=== PATIENT | female | born 1935 | race Two or more races ===

== ENCOUNTER 2022-04-02 10:40 | Inpatient (IN) | payer OTHER ==
[2022-04-01 09:52] LABS: Basophils # (auto) 0.1 10 ^3/uL (0-0.2); Basophils % (auto) 0.7 % (0.0-2.0); Eosinophils # (auto) 0.1 10 ^3/uL (0-0.8); Eosinophils % (auto) 1.7 % (0.0-7.0); Hematocrit 38.6 % (36.0-46.0); Hemoglobin 13.2 g/dL (12.2-16.2); Lymphocytes # (auto) 2.2 10 ^3/uL (0.4-5.4); Lymphocytes % (auto) 27.7 % (10.0-50.0); Mean Corpuscular Hemoglobin 32.9 pg (28.0-32.0); Mean Corpuscular Hgb Conc. 34.2 g/dL (32.0-36.0); Mean Corpuscular Volume 96.2 fL (80.0-100.0); Monocytes # (auto) 0.7 10 ^3/uL (0-1.3); Monocytes % (auto) 8.5 % (0.0-12.0); Neutrophils % (auto) 61.4 % (37.0-80.0); Red Blood Cells 4.02 10^6/uL (4.0-5.20); Red Cell Distribution Width 13.6 % (11.8-14.3); White Blood Cell 8.1 10^3/uL (4.4-10.8)
[2022-04-01 10:10] LABS: INR 1.01 (0.9-1.15); Partial Thromboplastin Time 25.6 sec (24.6-33.4)
[2022-04-01 10:16] LABS: Urine Bacteria NONE SEEN /hpf (None Seen); Urine Blood Negative /uL (Negative); Urine Specific Gravity 1.011 (1.001-1.035); Urine WBC 35 /hpf (0 - 5)
[2022-04-01 10:24] LABS: Albumin 3.9 g/dL (3.4-5.0); Calcium 9.4 mg/dL (8.5-10.1); Potassium 3.4 mmol/L (3.5-5.1)
[2022-04-01 10:28] LABS: BUN/Creatinine Ratio 21.3; Bilirubin, Total 0.7 mg/dL (0.2-1.0); Total Protein 7.6 g/dL (6.4-8.2)
[~2022-04-02] VITALS: Ht 162.6 cm; Wt 78.9 kg
[~2022-04-02 10:40] MED LIST: AMIO200T33 PO; AMLO-489 PO; B-COTAB59 OR; CALC-354 OR; CHOL100055 PO; FER325T PO; GLUC500T48 PO; HYDR25TA4 PO; LANS30CA57 PO; LEVO75TA6 PO; LOSA-39 PO; POTA10TA51 PO; RIVA10TA PO; ZOLP5TAB5 PO
[2022-04-02] MEDS ORDERED: ceFAZolin 1GM/50ML 0 ML IV ONE (11:41)
[2022-04-02] MEDS ORDERED: cefTRIAXone 1GM/50ML D5W 50 ML IV ONE (14:00)
[2022-04-02] MEDS ORDERED: NITROGLYCERIN 0.4 MG SL TAB SL PRN (14:00)
[2022-04-02] MEDS ORDERED: ONDANSETRON HCL 4 MG/2 ML VIAL IV PRN (14:00)
[2022-04-02] MEDS ORDERED: MORPHINE SULFATE INJ 2 MG/ml SYRG IV PRN ×2 (14:00)
[2022-04-02] MEDS: AMIODARONE HCL 200 MG TAB PO SCH ×2 (15:50→16:53)
[2022-04-02] MEDS: SODIUM CHLORIDE 0.9% 1,000 ML IV SCH (15:50)
[2022-04-02 16:15] VITALS: BP 105/75
[2022-04-02 17:00] VITALS: BP 111/56
[2022-04-02] MEDS: metroNIDAZOLE 500MG/100ML 100 ML IV SCH ×2 (17:55→22:00)
[2022-04-02 21:47] VITALS: BP 137/50
[2022-04-03] MEDS: LEVOTHYROXINE SODIUM 25 MCG TAB PO SCH (04:27)
[2022-04-03] MEDS: metroNIDAZOLE 500MG/100ML 100 ML IV SCH ×3 (05:26→23:00)
[2022-04-03 05:42] VITALS: BP 121/60
[2022-04-03 05:44] LABS: BUN/Creatinine Ratio 18.6; Calcium 8.8 mg/dL (8.5-10.1); Potassium 3.7 mmol/L (3.5-5.1)
[2022-04-03] MEDS: SODIUM CHLORIDE 0.9% 1,000 ML IV SCH ×2 (07:07→19:38)
[2022-04-03 08:00] VITALS: BP 120/76
[2022-04-03] MEDS: PANTOPRAZOLE 40 MG/10 ML VIAL INJ IV SCH (08:55)
[2022-04-03] MEDS: LOSARTAN POTASSIUM 25 MG TAB PO SCH (08:56)
[2022-04-03] MEDS: AMIODARONE HCL 200 MG TAB PO SCH (08:56)
[2022-04-03] MEDS ORDERED: cefTRIAXone 1GM/50ML D5W 50 ML IV SCH (09:00)
[2022-04-03] MEDS ORDERED: ROCURONIUM 10MG/ML 10ML VIAL IV ONE (11:15)
[2022-04-03] MEDS ORDERED: fentaNYL CITRATE 100 MCG/2 ML VL ONE (11:15)
[2022-04-03] MEDS ORDERED: MIDAZOLAM HCL 2MG/2ML 2ml VIAL (1mg/ml) ONE (11:15)
[2022-04-03] MEDS ORDERED: SUCCINYLCHOLINE CHLORIDE 20 MG/ML 10ML VIAL IV ONE (11:29)
[2022-04-03] MEDS ORDERED: ceFAZolin 1GM/50ML 100 ML IV ONE (11:34)
[2022-04-03] MEDS ORDERED: ePHEDrine SULFATE 50 MG/ML AMP ONE (12:33)
[2022-04-03] MEDS ORDERED: POVIDONE IODINE 10 % TOPICAL OINT 30GM TOP ONE (12:47)
[2022-04-03] MEDS ORDERED: LIDOCAINE 1% (LOCAL ANESTH.) PF 5ml SDV ONE (12:52)
[2022-04-03] MEDS ORDERED: ONDANSETRON HCL 4 MG/2 ML VIAL ONE (12:52)
[2022-04-03] MEDS ORDERED: PROPOFOL 10 MG/ML 20 ML IV ONE (12:53)
[2022-04-03] MEDS ORDERED: GLYCOPYRROLATE 0.2 MG/ML 1ML VIAL ONE (13:09)
[2022-04-03] MEDS ORDERED: ACETAMINOPHEN/CODEINE#3 (300/30mg) TAB PO PRN (13:30)
[2022-04-03] MEDS ORDERED: HYDROmorphone HCL 2 MG/ML VL/or syr ONE (13:36)
[2022-04-03] MEDS: HYDROmorphone HCL 2 MG/ML VL/or syr IV PRN ×2 (13:41→13:58)
[2022-04-03] MEDS ORDERED: HYDROmorphone HCL 2 MG/ML VL/or syr IV PRN ×2 (13:45)
[2022-04-03] MEDS ORDERED: ONDANSETRON HCL 4 MG/2 ML VIAL IV PRN (13:45)
[2022-04-03 16:00] VITALS: BP 127/68
[2022-04-03] MEDS: HYDROcodone-ACET 5/325MG TAB PO PRN (16:05)
[2022-04-03] MEDS: D5W/SOD CHL 0.45%/KCL 20MEQ 1,000 ML IV SCH ×2 (16:06→23:30)
[2022-04-03] MEDS: ceFAZolin 1GM/50ML 50 ML IV SCH ×2 (16:07→21:44)
[2022-04-03] MEDS ORDERED: NEOSTIGMINE 1 MG/ML INJ (10mg/10ML VIAL) IV ONE (16:45)
[2022-04-03 17:01] VITALS: BP 116/60
[2022-04-03 22:00] VITALS: BP 112/60
[2022-04-04 05:00] VITALS: BP 112/57
[2022-04-04] MEDS: ceFAZolin 1GM/50ML 50 ML IV SCH ×3 (05:43→22:20)
[2022-04-04] MEDS: ACETAMINOPHEN 500 MG TAB PO PRN ×2 (05:44→16:02)
[2022-04-04 06:04] LABS: Basophils # (auto) 0 10 ^3/uL (0-0.2); Basophils % (auto) 0.3 % (0.0-2.0); Eosinophils # (auto) 0 10 ^3/uL (0-0.8); Eosinophils % (auto) 0.4 % (0.0-7.0); Hematocrit 36.5 % (36.0-46.0); Hemoglobin 12.4 g/dL (12.2-16.2); Lymphocytes # (auto) 1.5 10 ^3/uL (0.4-5.4); Lymphocytes % (auto) 14.6 % (10.0-50.0); Mean Corpuscular Hemoglobin 32.6 pg (28.0-32.0); Mean Corpuscular Volume 95.9 fL (80.0-100.0); Monocytes # (auto) 1.1 10 ^3/uL (0-1.3); Monocytes % (auto) 10.8 % (0.0-12.0); Neutrophils # (auto) 7.8 10 ^3/uL (1.6-8.6); Neutrophils % (auto) 73.9 % (37.0-80.0); Red Cell Distribution Width 13.5 % (11.8-14.3); White Blood Cell 10.5 10^3/uL (4.4-10.8)
[2022-04-04] MEDS: metroNIDAZOLE 500MG/100ML 100 ML IV SCH ×3 (06:28→23:38)
[2022-04-04] MEDS: LEVOTHYROXINE SODIUM 25 MCG TAB PO SCH (07:00)
[2022-04-04 08:00] VITALS: BP 108/63
[2022-04-04 09:01] LABS: Calcium 8.4 mg/dL (8.5-10.1); Potassium 3.9 mmol/L (3.5-5.1)
[2022-04-04 09:04] LABS: BUN/Creatinine Ratio 14.3; Bilirubin, Total 0.5 mg/dL (0.2-1.0)
[2022-04-04] MEDS: AMIODARONE HCL 200 MG TAB PO SCH (09:44)
[2022-04-04] MEDS: PANTOPRAZOLE 40 MG/10 ML VIAL INJ IV SCH (09:45)
[2022-04-04] MEDS: LOSARTAN POTASSIUM 25 MG TAB PO SCH (09:45)
[2022-04-04] MEDS: D5W/SOD CHL 0.45%/KCL 20MEQ 1,000 ML IV SCH ×2 (09:51→19:30)
[2022-04-04 12:00] VITALS: BP 109/66
[2022-04-04 16:00] VITALS: BP 132/72
[2022-04-04] MEDS: SODIUM CHLORIDE 0.9% 1,000 ML IV SCH (16:22)
[2022-04-04] MEDS: HYDROcodone-ACET 5/325MG TAB PO PRN (21:31)
[2022-04-04 21:32] VITALS: BP 128/79
[2022-04-05 04:45] VITALS: BP 137/82
[2022-04-05] MEDS ORDERED: SODIUM CHLORIDE 0.9% 500 ML IV ONE (04:45)
[2022-04-05 05:21] LABS: Potassium 3.5 mmol/L (3.5-5.1)
[2022-04-05 05:23] LABS: Magnesium 1.8 mg/dL (1.6-2.6)
[2022-04-05] MEDS: D5W/SOD CHL 0.45%/KCL 20MEQ 1,000 ML IV SCH ×2 (05:52→16:51)
[2022-04-05] MEDS: ceFAZolin 1GM/50ML 50 ML IV SCH ×3 (06:06→21:50)
[2022-04-05] MEDS ORDERED: METOPROLOL TARTRATE 1MG/1ML-5ML VIAL IV PRN (06:15)
[2022-04-05] MEDS: metroNIDAZOLE 500MG/100ML 100 ML IV SCH ×3 (06:53→22:48)
[2022-04-05] MEDS: LEVOTHYROXINE SODIUM 25 MCG TAB PO SCH (06:53)
[2022-04-05 09:00] VITALS: BP 128/80
[2022-04-05] MEDS: AMIODARONE HCL 200 MG TAB PO SCH (09:13)
[2022-04-05] MEDS: METOPROLOL TARTRATE 25 MG TAB PO SCH ×2 (09:14→22:48)
[2022-04-05] MEDS: PANTOPRAZOLE 40 MG/10 ML VIAL INJ IV SCH (09:15)
[2022-04-05 13:00] VITALS: BP 120/69
[2022-04-05] MEDS ORDERED: MET25T PO (14:39)
[2022-04-05] MEDS ORDERED: HYDR-4902 PO (14:40)
[2022-04-05 17:00] VITALS: BP 127/65
[2022-04-05 17:59] VITALS: BP 120/69
[2022-04-05 22:00] VITALS: BP 130/59
[2022-04-06] MEDS: D5W/SOD CHL 0.45%/KCL 20MEQ 1,000 ML IV SCH ×2 (01:21→11:30)
[2022-04-06 05:00] VITALS: BP 133/67
[2022-04-06] MEDS: ceFAZolin 1GM/50ML 50 ML IV SCH ×2 (05:12→14:48)
[2022-04-06] MEDS: LEVOTHYROXINE SODIUM 25 MCG TAB PO SCH (06:13)
[2022-04-06] MEDS: metroNIDAZOLE 500MG/100ML 100 ML IV SCH ×2 (06:13→15:28)
[2022-04-06] MEDS: AMIODARONE HCL 200 MG TAB PO SCH (08:59)
[2022-04-06] MEDS: METOPROLOL TARTRATE 25 MG TAB PO SCH (09:00)
[2022-04-06] MEDS: PANTOPRAZOLE 40 MG/10 ML VIAL INJ IV SCH (09:02)
[2022-04-06 13:00] VITALS: BP 136/65
[2022-04-06] MEDS ORDERED: RIVAROXABAN 15 MG TAB PO SCH (18:00)
== END 2022-04-06 16:25 | disposition home health service (06) | DRG 415 ==
LOC: SUR 10:40 → TELE 14:00 → EAST 15:46 → TELE-EAST 23:01
PROVIDERS: ADMIT Internal Medicine; ATTEND Internal Medicine
PROC: 0FJ44ZZ Inspection of Gallbladder, Percutaneous Endoscopic Approach (ICD-10-PCS; 2022-04-03)
PROC: 0FT40ZZ Resection of Gallbladder, Open Approach (ICD-10-PCS; principal; 2022-04-03 11:36)
DX: K80.10 Calculus of gallbladder with chronic cholecystitis without obstruction (principal); D68.69 Other thrombophilia; N17.9 Acute kidney failure, unspecified; N39.0 Urinary tract infection, site not specified; E03.9 Hypothyroidism, unspecified; K21.9 Gastro-esophageal reflux disease without esophagitis; I12.9 Hypertensive chronic kidney disease with stage 1 through stage 4 chronic kidney disease, or unspecified chronic kidney disease; K66.0 Peritoneal adhesions (postprocedural) (postinfection); Z20.822 Contact with and (suspected) exposure to COVID-19; I48.0 Paroxysmal atrial fibrillation; N18.9 Chronic kidney disease, unspecified; Z53.31 Laparoscopic surgical procedure converted to open procedure; Z79.01 Long term (current) use of anticoagulants; Z85.038 Personal history of other malignant neoplasm of large intestine
CPT/HCPCS: 36415; 71045; 80048; 80053; 81001; 82247; 83735; 84132; 84443; 85025; 85610; 85730; 86850; 86900; 86901; 93005; 93306; C9113; G0378; J0330; J0690; J0696; J2250; J2405; J2704; J3490

== ENCOUNTER 2022-07-20 07:11 | Inpatient (IN) | payer BC, MEDICAID ==
[~2022-07-20] VITALS: Ht 160 cm; Wt 72.0 kg
[~2022-07-20 07:11] MED LIST changes: -B-COTAB59 OR; +HYDR-4902 PO; -LOSA-39 PO; +MET25T PO
[2022-07-20 07:42] LABS: Basophils # (auto) 0.1 10 ^3/uL (0-0.2); Basophils % (auto) 0.8 % (0.0-2.0); Eosinophils # (auto) 0.1 10 ^3/uL (0-0.8); Eosinophils % (auto) 1.7 % (0.0-7.0); Hemoglobin 14.9 g/dL (12.2-16.2); Lymphocytes # (auto) 2.9 10 ^3/uL (0.4-5.4); Lymphocytes % (auto) 34.9 % (10.0-50.0); Mean Corpuscular Hemoglobin 32.4 pg (28.0-32.0); Mean Corpuscular Hgb Conc. 33.8 g/dL (32.0-36.0); Mean Corpuscular Volume 95.9 fL (80.0-100.0); Monocytes # (auto) 0.7 10 ^3/uL (0-1.3); Monocytes % (auto) 8.3 % (0.0-12.0); Neutrophils # (auto) 4.6 10 ^3/uL (1.6-8.6); Neutrophils % (auto) 54.3 % (37.0-80.0); Nucleated Red Blood Cells % 0.1 %; Red Blood Cells 4.59 10^6/uL (4.0-5.20); Red Cell Distribution Width 13.9 % (11.8-14.3); White Blood Cell 8.4 10^3/uL (4.4-10.8)
[2022-07-20 07:58] LABS: Albumin 4.4 g/dL (3.4-5.0); Calcium 9.4 mg/dL (8.5-10.1); Potassium 3.3 mmol/L (3.5-5.1)
[2022-07-20 08:02] LABS: BUN/Creatinine Ratio 14.5; Bilirubin, Total 0.9 mg/dL (0.2-1.0); Total Protein 7.8 g/dL (6.4-8.2)
[2022-07-20] MEDS ORDERED: ASPirin 325 MG TAB PO ONE (08:45)
[2022-07-20] MEDS ORDERED: POTASSIUM EFFERVESENT TAB 25 MEQ PO ONE ×2 (08:45→15:15)
[2022-07-20] MEDS ORDERED: ONDANSETRON ODT 4 MG TAB PO ONE (09:30)
[2022-07-20 09:38] LABS: Urine Bacteria FEW /hpf (None Seen); Urine Blood Negative /uL (Negative); Urine Specific Gravity 1.011 (1.001-1.035); Urine WBC 2 /hpf (0 - 5)
[2022-07-20] MEDS ORDERED: NITROGLYCERIN 0.4 MG SL TAB SL PRN (13:45)
[2022-07-20] MEDS ORDERED: ONDANSETRON HCL 4 MG/2 ML VIAL IV PRN (13:45)
[2022-07-20] MEDS ORDERED: ACETAMINOPHEN 325 MG TAB PO PRN (13:45)
[2022-07-20] MEDS ORDERED: MORPHINE SULFATE INJ 2 MG/ml SYRG IV PRN (13:45)
[2022-07-20] MEDS ORDERED: DOCUSATE SOD 100 MG CAP PO PRN (13:45)
[2022-07-20] MEDS ORDERED: HYDROcodone-ACET 5/325MG TAB PO PRN (13:45)
[2022-07-20] MEDS ORDERED: NTG 0.1MG/HR TOPICAL PATCH TD ONE (15:15)
[2022-07-20 15:33] LABS: Cholesterol 143 mg/dL (< 200); HDL Cholesterol 46 mg/dL (40-59); LDL Cholesterol 88 mg/dL (< 100); Triglycerides 84 mg/dL (< 150)
[2022-07-20] MEDS: SODIUM CHLOR 0.9% PF (SALINE LOCK) 10ML VIAL/SYR IV SCH ×2 (15:34→22:38)
[2022-07-20 15:40] LABS: Alcohol, Urine < 3.0 mg/dL (0-10); Amphetamine Screen, Urine NEGATIVE (NEGATIVE); Barbiturate Scree,Urine NEGATIVE (NEGATIVE); Benzodiazephine Screen, Urine NEGATIVE (NEGATIVE); Cannabinoid Screen, Urine NEGATIVE (NEGATIVE); Cocaine Screen, Urine NEGATIVE (NEGATIVE); Opiate Scree,Urine NEGATIVE (NEGATIVE); Phencyclidine Screen, Urine NEGATIVE (NEGATIVE)
[2022-07-20] MEDS ORDERED: ENOXAPARIN SOD 100 MG/1 ML SYRINGE SC ONE (15:45)
[2022-07-20] MEDS: SODIUM CHLORIDE 0.9% 1,000 ML IV SCH (16:15)
[2022-07-20 16:27] LABS: INR 1.15 (0.9-1.15); Partial Thromboplastin Time 29.2 sec (24.6-33.4)
[2022-07-20] MEDS ORDERED: ATORVASTATIN 20 MG TAB PO SCH (22:00)
[2022-07-20] MEDS: METOPROLOL TARTRATE 25 MG TAB PO SCH (22:41)
[2022-07-21] MEDS: SODIUM CHLOR 0.9% PF (SALINE LOCK) 10ML VIAL/SYR IV SCH ×2 (06:00→14:07)
[2022-07-21] MEDS: SODIUM CHLORIDE 0.9% 1,000 ML IV SCH ×2 (06:29→11:27)
[2022-07-21] MEDS ORDERED: ADENOSINE 60 MG in GIVE UN-DILUTED 0 ML IV STA (08:20)
[2022-07-21] MEDS ORDERED: FERROUS SULFATE 325mg EC TAB PO SCH (10:00)
[2022-07-21] MEDS ORDERED: RIVAROXABAN 15 MG TAB PO SCH (10:00)
[2022-07-21] MEDS ORDERED: amLODIPine BESYLATE 5 MG TAB PO SCH (10:00)
[2022-07-21] MEDS ORDERED: NTG 0.1MG/HR TOPICAL PATCH TD SCH (10:00)
[2022-07-21] MEDS: METOPROLOL TARTRATE 25 MG TAB PO SCH (10:00)
[2022-07-21] MEDS ORDERED: PANTOPRAZOLE 40 MG/10 ML VIAL INJ IV SCH (10:00)
[2022-07-21] MEDS ORDERED: ASPirin 81 mg TAB PO SCH (10:00)
[2022-07-21] MEDS ORDERED: CHOLECALCIFEROL (VITD3) 1,000UNIT=25mCg TAB PO SCH (10:00)
[2022-07-21] MEDS ORDERED: ENOXAPARIN SOD 100 MG/1 ML SYRINGE SC SCH (10:00)
[2022-07-21] MEDS ORDERED: AMIODARONE HCL 200 MG TAB PO SCH (10:00)
[2022-07-21] MEDS ORDERED: LEVOTHYROXINE SODIUM 25 MCG TAB PO SCH (10:00)
[2022-07-21] MEDS ORDERED: PANTOPRAZOLE 40 MG TAB PO SCH (10:00)
[2022-07-21] MEDS ORDERED: HCTZ 25 MG TAB PO SCH (10:00)
[2022-07-21 11:19] VITALS: BP 129/79
[2022-07-21 20:00] VITALS: BP 112/64
== END 2022-07-21 20:00 | disposition home or self-care (01) | DRG 313 ==
LOC: ER 07:11 → TELE 13:41
PROVIDERS: ADMIT Internal Medicine; ATTEND Internal Medicine
DX: R07.9 Chest pain, unspecified (principal); N17.9 Acute kidney failure, unspecified; E03.9 Hypothyroidism, unspecified; E78.5 Hyperlipidemia, unspecified; I12.9 Hypertensive chronic kidney disease with stage 1 through stage 4 chronic kidney disease, or unspecified chronic kidney disease; Z20.822 Contact with and (suspected) exposure to COVID-19; R00.1 Bradycardia, unspecified; I48.91 Unspecified atrial fibrillation; N18.31 Chronic kidney disease, stage 3a; Z79.01 Long term (current) use of anticoagulants; Z90.710 Acquired absence of both cervix and uterus; Z90.49 Acquired absence of other specified parts of digestive tract
CPT/HCPCS: 36415; 71045; 78452; 80053; 80061; 80307; 81001; 83036; 83880; 84443; 84484; 85025; 85379; 85610; 85730; 87426; 93005; 93017; C9113; G0378; J0153; Q0162